=== PATIENT | female | born 1985 | race Caucasian/White ===

== ENCOUNTER 2017-02-16 10:54 | Outpatient (CLI) | payer MEDICAID, OTHER | END 2017-02-16 10:55 | disposition home or self-care (01) | DX: E78.5 Hyperlipidemia, unspecified (principal); I10 Essential (primary) hypertension ==

== ENCOUNTER 2018-02-21 08:00 | Outpatient (CLI) | payer OTHER ==
[2018-02-21 19:07] LABS: BASOPHILS # (AUTO) 0.1 10^3/uL (0.0-0.1); BASOPHILS % (AUTO) 0.7 %; EOSINOPHILS # (AUTO) 0.1 10^3/uL (0.0-0.7); EOSINOPHILS % (AUTO) 1.5 %; HGB - HEMOGLOBIN 13.3 g/dL (12.0-16.0); LYMPHOCYTES # (AUTO) 2.6 10^3/uL (1.5-3.5); LYMPHOCYTES % (AUTO) 30.7 %; MEAN CORPUSCULAR HEMOGLOBIN 28.7 pg (27.0-31.0); MEAN CORPUSCULAR HGB CONC 32.1 g/dL (32.0-36.0); MEAN CORPUSCULAR VOLUME 89.5 fL (81.0-99.0); MEAN PLATELET VOLUME 9.1 fL (7.9-10.8); MONOCYTES # (AUTO) 0.6 10^3/uL (0.0-1.0); MONOCYTES % (AUTO) 6.9 %; NEUTROPHILS # (AUTO) 5.1 10^3/uL (1.5-6.6); NEUTROPHILS % (AUTO) 60.2 %; PLT - PLATELET COUNT 351 10^3/uL (130-450); RED BLOOD COUNT 4.63 10^6/uL (4.20-5.40); WHITE BLOOD COUNT 8.5 x10^3/uL (4.8-10.8)
[2018-02-21 19:33] LABS: ALBUMIN 3.8 g/dL (3.2-5.5); ALKALINE PHOSPHATASE 58 IU/L (42-121); ALT ALANINE AMINOTRANSFERASE 45 IU/L (10-60); AST ASPARTATE AMINOTRANSFERASE 26 IU/L (10-42); BILIRUBIN,TOTAL 0.8 mg/dL (0.2-1.0); BUN - BLOOD UREA NITROGEN 13 mg/dL (6-20); CALCIUM 9.3 mg/dL (8.5-10.3); CARBON DIOXIDE - CO2 24 mmol/L (21-32); CHLORIDE 102 mmol/L (101-111); CHOLESTEROL 209 mg/dL; CREATININE 0.7 mg/dL (0.4-1.0); GFR - MDRD 96 (>89); GLUCOSE 80 mg/dL (70-100); HDL CHOLESTEROL 30 mg/dL; LDL CHOLESTEROL,CALCULATED 152 mg/dL; LDL/HDL RATIO 5.1 (<4.4); SODIUM 133 mmol/L (135-145); TOTAL PROTEIN 7.8 g/dL (6.7-8.2); VLDL CHOLESTEROL 27 mg/dL
== END 2018-02-21 08:01 | disposition home or self-care (01) ==
LOC: LAB.N 08:00
PROVIDERS: ATTEND Nurse Practitioner Gerontology
DX: E78.5 Hyperlipidemia, unspecified (principal); I10 Essential (primary) hypertension; Z13.9 Encounter for screening, unspecified
CPT/HCPCS: 36415; 80053; 80061; 83721; 84443; 85025

== ENCOUNTER 2018-10-18 14:34 | Outpatient (CLI) | payer OTHER ==
--- NOTE | 2018-10-18 15:34 | XRAY Report ---
Reason: COUGH Procedure Date: 10/18/2018 Accession Number: [id number] / [id number] Procedure: XRN - Chest 2 View X-Ray CPT Code: 04854 FULL RESULT: EXAM: CHEST RADIOGRAPHY EXAM DATE: 10/18/2018 02:55 PM. CLINICAL HISTORY: Cough. COMPARISON: None. TECHNIQUE: 2 views. FINDINGS: Lungs/Pleura: No focal opacities evident. No pleural effusion. No pneumothorax. Normal volumes. Mediastinum: Heart and mediastinal contours are unremarkable. Other: None. IMPRESSION: No evidence of pneumonia. RADIA
== END 2018-10-18 14:35 | disposition home or self-care (01) ==
LOC: DI.N 14:34
DX: R05 Cough (principal)
CPT/HCPCS: 71046

== ENCOUNTER 2020-09-23 10:02 | Outpatient (CLI) | payer MEDICAID, OTHER ==
[2020-09-23 12:58] LABS: BASOPHILS # (AUTO) 0.1 10^3/uL (0.0-0.1); BASOPHILS % (AUTO) 0.4 %; EOSINOPHILS # (AUTO) 0.2 10^3/uL (0.0-0.7); EOSINOPHILS % (AUTO) 1.5 %; HGB - HEMOGLOBIN 13.5 g/dL (12.0-16.0); LYMPHOCYTES # (AUTO) 2.5 10^3/uL (1.5-3.5); LYMPHOCYTES % (AUTO) 21.4 %; MEAN CORPUSCULAR HEMOGLOBIN 29.6 pg (27.0-31.0); MEAN CORPUSCULAR HGB CONC 31.8 g/dL (32.0-36.0); MEAN CORPUSCULAR VOLUME 93.2 fL (81.0-99.0); MEAN PLATELET VOLUME 11.1 fL (7.9-10.8); MONOCYTES # (AUTO) 0.8 10^3/uL (0.0-1.0); MONOCYTES % (AUTO) 7.1 %; NEUTROPHILS # (AUTO) 8.1 10^3/uL (1.5-6.6); NEUTROPHILS % (AUTO) 69.3 %; PLT - PLATELET COUNT 364 10^3/uL (130-450); RED BLOOD COUNT 4.56 10^6/uL (4.20-5.40); RED CELL DISTRIBUTION WIDTH 12.8 % (12.0-15.0); WHITE BLOOD COUNT 11.7 x10^3/uL (4.8-10.8)
[2020-09-23 13:17] LABS: ALBUMIN 3.6 g/dL (3.2-5.5); ALBUMIN/GLOBULIN RATIO 0.9 (1.0-2.2); ALKALINE PHOSPHATASE 57 IU/L (42-121); ALT ALANINE AMINOTRANSFERASE 24 IU/L (10-60); AST ASPARTATE AMINOTRANSFERASE 17 IU/L (10-42); BILIRUBIN,TOTAL 0.2 mg/dL (0.2-1.0); BUN - BLOOD UREA NITROGEN 15 mg/dL (6-20); CALCIUM 9.4 mg/dL (8.5-10.3); CARBON DIOXIDE - CO2 24 mmol/L (21-32); CHLORIDE 97 mmol/L (101-111); CHOL/HDL RATIO 6.5 (<4.4); CHOLESTEROL 215 mg/dL; CREATININE 0.8 mg/dL (0.4-1.0); GLUCOSE 116 mg/dL (70-100); HDL CHOLESTEROL 33 mg/dL; LDL CHOLESTEROL,CALCULATED 159 mg/dL; LDL/HDL RATIO 4.8 (<4.4); SODIUM 136 mmol/L (135-145); TOTAL PROTEIN 7.6 g/dL (6.7-8.2); VLDL CHOLESTEROL 23 mg/dL
[2020-09-23 13:31] LABS: HEMOGLOBIN A1c% 5.6 % (4.27-6.07)
== END 2020-09-23 23:59 | disposition home or self-care (01) ==
LOC: LAB.WCP 10:02
PROVIDERS: ATTEND Nurse Practitioner Family
DX: I10 Essential (primary) hypertension (principal); E78.00 Pure hypercholesterolemia, unspecified; Z83.3 Family history of diabetes mellitus; F41.9 Anxiety disorder, unspecified; F32.9 Major depressive disorder, single episode, unspecified
CPT/HCPCS: 36415; 80053; 80061; 83036; 83721; 84443; 85025

== ENCOUNTER 2020-10-19 09:17 | Outpatient (CLI) | payer MEDICAID | END 2020-10-19 09:18 | disposition home or self-care (01) | LOC: COV 09:17 | PROVIDERS: ATTEND Family Medicine | DX: R05 Cough (principal); R06.02 Shortness of breath; R53.83 Other fatigue; R07.0 Pain in throat; R09.81 Nasal congestion; J34.89 Other specified disorders of nose and nasal sinuses; Z20.822 Contact with and (suspected) exposure to COVID-19 ==

== ENCOUNTER 2021-12-13 12:32 | Outpatient (CLI) | payer MEDICAID | END 2021-12-13 12:33 | disposition home or self-care (01) | LOC: LAB.N 12:32 | PROVIDERS: ATTEND Physician Assistant Medical | DX: Z71.89 Other specified counseling (principal) | CPT/HCPCS: 36415; 86735; 86762; 86765; 86787 ==

== ENCOUNTER 2022-11-02 11:56 | Outpatient (CLI) | payer MEDICAID ==
[2022-11-02 18:29] LABS: BASOPHILS # (AUTO) 0.1 10^3/uL (0.0-0.1); BASOPHILS % (AUTO) 0.5 %; EOSINOPHILS # (AUTO) 0.3 10^3/uL (0.0-0.7); HCT - HEMATOCRIT 41.9 % (37.0-47.0); HGB - HEMOGLOBIN 13.3 g/dL (12.0-16.0); LYMPHOCYTES % (AUTO) 23.6 %; MEAN CORPUSCULAR HEMOGLOBIN 28.8 pg (27.0-31.0); MEAN CORPUSCULAR HGB CONC 31.7 g/dL (32.0-36.0); MEAN CORPUSCULAR VOLUME 90.7 fL (81.0-99.0); MEAN PLATELET VOLUME 11.1 fL (7.9-10.8); MONOCYTES # (AUTO) 0.8 10^3/uL (0.0-1.0); MONOCYTES % (AUTO) 6.2 %; NEUTROPHILS # (AUTO) 8.6 10^3/uL (1.5-6.6); NEUTROPHILS % (AUTO) 67.5 %; PLT - PLATELET COUNT 450 10^3/uL (130-450); RED BLOOD COUNT 4.62 10^6/uL (4.20-5.40); RED CELL DISTRIBUTION WIDTH 13.4 % (12.0-15.0); WHITE BLOOD COUNT 12.7 x10^3/uL (4.8-10.8)
[2022-11-02 19:13] LABS: ALBUMIN 3.6 g/dL (3.2-5.5); ALBUMIN/GLOBULIN RATIO 0.8 (1.0-2.2); ALKALINE PHOSPHATASE 57 IU/L (42-121); ALT ALANINE AMINOTRANSFERASE 14 IU/L (10-60); AST ASPARTATE AMINOTRANSFERASE 12 IU/L (10-42); BILIRUBIN,TOTAL 0.6 mg/dL (0.2-1.0); BUN - BLOOD UREA NITROGEN 16 mg/dL (6-20); CALCIUM 9.2 mg/dL (8.5-10.3); CARBON DIOXIDE - CO2 25 mmol/L (21-32); CHLORIDE 102 mmol/L (101-111); CHOL/HDL RATIO 5.6 (<4.4); CHOLESTEROL 230 mg/dL; CREATININE 0.9 mg/dL (0.4-1.0); GFR - MDRD 70 (>89); GLUCOSE 102 mg/dL (70-100); HDL CHOLESTEROL 41 mg/dL; LDL CHOLESTEROL,CALCULATED 160 mg/dL; LDL/HDL RATIO 3.9 (<4.4); POTASSIUM 4.5 mmol/L (3.5-5.0); SODIUM 136 mmol/L (135-145); TRIGLYCERIDES 143 mg/dL; VLDL CHOLESTEROL 29 mg/dL
[2022-11-02 19:19] LABS: THYROID STIMULATING HORMONE 3.02 uIU/mL (0.34-5.60)
[2022-11-02 21:09] LABS: ESTIMATED AVERAGE GLUCOSE 108 mg/dL (70-100); HEMOGLOBIN A1c% 5.4 % (4.27-6.07)
== END 2022-11-02 11:57 | disposition home or self-care (01) ==
LOC: LAB.N 11:56
PROVIDERS: ATTEND Physician Assistant Medical
DX: E78.00 Pure hypercholesterolemia, unspecified (principal); R73.9 Hyperglycemia, unspecified; Z13.9 Encounter for screening, unspecified
CPT/HCPCS: 36415; 80050; 80061; 83036; 83721

== ENCOUNTER 2023-06-26 07:53 | Outpatient (CLI) | payer MEDICAID ==
[2023-06-26 11:50] LABS: BASOPHILS # (AUTO) 0.1 10^3/uL (0.0-0.1); BASOPHILS % (AUTO) 0.5 %; EOSINOPHILS # (AUTO) 0.2 10^3/uL (0.0-0.7); HCT - HEMATOCRIT 39.4 % (37.0-47.0); HGB - HEMOGLOBIN 12.2 g/dL (12.0-16.0); LYMPHOCYTES # (AUTO) 2.2 10^3/uL (1.5-3.5); LYMPHOCYTES % (AUTO) 21.7 %; MEAN CORPUSCULAR VOLUME 90.6 fL (81.0-99.0); MEAN PLATELET VOLUME 11.2 fL (7.9-10.8); MONOCYTES # (AUTO) 0.6 10^3/uL (0.0-1.0); MONOCYTES % (AUTO) 6.3 %; NEUTROPHILS % (AUTO) 69.1 %; PLT - PLATELET COUNT 416 10^3/uL (130-450); RED BLOOD COUNT 4.35 10^6/uL (4.20-5.40); RED CELL DISTRIBUTION WIDTH 13.8 % (12.0-15.0); WHITE BLOOD COUNT 10.1 x10^3/uL (4.8-10.8)
[2023-06-26 12:14] LABS: CHOL/HDL RATIO 4.9 (<4.4); CHOLESTEROL 200 mg/dL; HDL CHOLESTEROL 41 mg/dL; LDL CHOLESTEROL,CALCULATED 133 mg/dL; LDL/HDL RATIO 3.2 (<4.4); TRIGLYCERIDES 130 mg/dL (48-352); VLDL CHOLESTEROL 26 mg/dL
== END 2023-06-26 07:54 | disposition home or self-care (01) ==
LOC: LAB.N 07:53
PROVIDERS: ATTEND Physician Assistant Medical
DX: E78.00 Pure hypercholesterolemia, unspecified (principal); D72.829 Elevated white blood cell count, unspecified
CPT/HCPCS: 36415; 80061; 83721; 85025

== ENCOUNTER 2023-10-30 15:03 | Outpatient (CLI) | payer MEDICAID ==
--- NOTE | 2023-10-30 15:30 | Sleep Patient Instructions ---
Sleep Center Visit Summary - Patient Visit Information Reason for Visit: Initial consult for evaluation of sleep disordered breathing and other sleep issues. - Patient Instructions Instructions Attached: Sleep Study, Sleep Study Home Monitor Additional Instructions: You will be completing a sleep study, either an in-lab polysomnography (PSG) or home sleep study (HST). You will follow-up in the sleep care office after the sleep study is completed to hear the results and talk about therapy, if needed. You will be called by our office staff to schedule this appointment, but you may contact us with any questions. - Clinic Information Contact: [facility] [address] [place] [id number] [email or web address] T: [phone]
--- NOTE | 2023-10-30 15:38 | SLEEP CARE CONSULTATION ---
Information from patient questionnaire entered by Dat Nath. I have reviewed and concur with the information entered by Dat Nath. This document represents the service I personally performed and the decisions made by me, Marjorie Galindo ARNP. History of Present Illness Service Date and Time: 10/30/2023 1503 Reason for Visit: New patient Chief Complaint: reports: Unrefreshed sleep, Snoring, Observed pauses in breathing, Fatigue, Frequent awakenings at night Date of Onset: 3+YRS Usual bedtime: 10 PM Time it takes to fall asleep: 30-60MINS Snores at night: Yes Observed to quit breathing while asleep: Yes Sleeps alone due to snoring: No Number of times waking at night: 3-4 Reasons for waking at night: reports: Choking (not often), Snoring, Bathroom. denies: Gasping for air Toss, Turn, or Twitch while sleeping: Yes Recalls having dreams: Yes Usually gets out of bed at: 7AM Feels refreshed in the morning: No Morning headache: Yes (1-2 times a month; WITHIN 30MINS) Sleepy or fatigued during the day: Yes Ever fallen asleep while driving: No Takes day naps: Yes (4 times a week; for 1-2 hours) Dreams during day naps: Yes Prior sleep studies: No Additional HPI information: I had the pleasure of seeing NOEMI ALICEA today regarding the possibility of her having a sleep disorder. Her current complaints are unrefreshed sleep, snoring, observed pauses in breathing, fatigue and frequent night awakenings. She says someone has told her that she gasps in her sleep. She says she snores loudly. She has woke herself up with her snoring and feeling like she was choking. She denies waking up gasping for air. She states she normally wakes up feeling tired and unrefreshed. She likes to take naps daily but only manages to get a nap about 4 days a week. She also wakes up with headaches occasionally, 1- 2 times a month, that resolves quickly in about 30 minutes after getting up. Her father has sleep apnea and is on a PAP machine. She also says that she had a cousin when he was 38 and they thought it was from complications of sleep apnea. 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 Patient is Single and lives in [place]. Have you smoked in the past 12 months: No Alcohol use: Yes Alcohol amount and frequency: 1 DRINK 1-2 X A MONTH Caffeine use: Yes Caffeine amount and frequency: 2-3 DRINKS DAILY Family History Family history of sleep disordered breathing: Yes Family Hx Sleep Apnea: Father: Snoring, Sleep apnea - Treated Allergies and Home Medications Known drug allergies: No Drug allergies reviewed: Yes Home medication list reviewed: Yes Allergy and home medication list: Allergies No Known Drug Allergies Allergy (Verified 10/26/23 12:04) Home Medications Medication Instructions Recorded Confirmed Last Taken Type Citalopram [CeleXA] See Rx Instructions .ROUTE .COMPLEX 01/10/14 10/30/23 Unknown History Lisinopril See Rx Instructions .ROUTE .COMPLEX 01/10/14 10/30/23 Unknown History ARIPiprazole [Abilify] See Rx Instructions .ROUTE .COMPLEX 10/30/23 10/30/23 Unknown History buPROPion HCL [Wellbutrin Xl] See Rx Instructions .ROUTE .COMPLEX 10/30/23 10/30/23 Unknown History Review of Systems Weight gain over past 5 years: 30 Cardiovascular: reports: high blood pressure, chest pain (sometimes after waking up, hurt like it worked too hard) Respiratory: reports: shortness of breath (just during activity) Gastrointestinal: reports: heartburn Urinary: reports: frequency Neurological: reports: headaches Psychiatric: reports: anxiety, depression Ear/Nose/Throat: reports: wisdom teeth removed. denies: tonsillectomy Physical Exam Vital signs obtained and entered by: DAT Young MA Blood Pressure: 122/80 (LEFT ARM) Cuff size: regular Heart Rate: 101 O2 Saturation: 95 Height: 5 ft 3 in Weight: 311 lb 6.4 oz Body Mass Index: 55.1 BMI Classification: Morbidly Obese Neck circumference: 21 Mouth and throat: narrow oropharynx Soft palate: normal Hard palate: normal Uvula: normal Uvula visualization: 25% Mallampati Class III Tongue: normal in size Tonsils: 3+/kissing Neck: normal w/o lymphadenopathy or thyromegaly Heart: regular rate and rhythm Lungs: clear bilaterally Impression and Plan 1. Suspected Obstructive Sleep Apnea-Hypopnea Syndrome, as suggested by a history of loud and irregular snoring, observed cessation of breath while asleep, gasping or choking in sleep, morning headache, frequent awakening during the night and unrefreshed sleep. Narrow oropharynx and obesity are common predisposing factors for obstructive sleep apnea-hypopnea syndrome. I recommend proceeding to polysomnography to confirm the diagnosis and to assess severity. If the patient has significant sleep disordered breathing, a manual CPAP titration study will also be performed to find the optimal treatment pressure. I informed the patient of what the sleep studies involve and after some discussion, obtained agreement to proceed. The pathophysiology of obstructive sleep apnea-hypopnea syndrome was discussed with the patient and health risks of cardiovascular and cerebrovascular disease if not treated. Risks of drowsy driving discussed in detail and patient advised to avoid long distance driving and to gum puller at the first sign of drowsiness. Patient agreed to plan. * Schedule polysomnography. * Avoid long distance driving or driving when feeling sleepy. * Avoid alcohol, sedative and muscle relaxant around bedtime. * Attempt to lose weight. * Review instructions provided by trained office staff on how to prepare for the sleep study. * Return for follow-up after sleep study completed. Counseling Topics: Weight loss health impact Plan: PSG/HST Visit Type: In Office Time Spent with Patient (minutes): 30 Provider Statement: I spent 100% of the Face to Face Visit with the patient with greater than 50% spent counseling the patient and coordination of care.
[2023-10-30 15:43] VITALS: BP 122/80; O2SAT 95
== END 2023-10-30 15:04 | disposition home or self-care (01) ==
LOC: SC 15:03
PROVIDERS: ATTEND Nurse Practitioner Family
DX: G47.10 Hypersomnia, unspecified (principal); R06.83 Snoring; R06.81 Apnea, not elsewhere classified; R53.83 Other fatigue; E66.01 Morbid (severe) obesity due to excess calories; Z68.43 Body mass index [BMI] 50.0-59.9, adult
CPT/HCPCS: 99203; 99212

== ENCOUNTER 2023-11-08 10:51 | Outpatient (CLI) | payer MEDICAID ==
--- NOTE | 2023-11-08 14:14 | XRAY Report ---
PROCEDURE: Ankle 3+V LT INDICATIONS: LEFT ANKLE PAIN TECHNIQUE: 3 views of the ankle were acquired. COMPARISON: None. FINDINGS: Bones: No fractures or dislocations. Corticated ossific density inferior to the lateral malleolus, likely an accessory ossicle or sequela of remote trauma. Ankle mortise is normally aligned on weightb earing view. No suspicious bony lesions. Soft tissues: No tibiotalar joint effusion. Achilles tendon appears normal. IMPRESSION: No acute bony abnormality. Reviewed by: Shaquille Barreto MD on 11/08/2023 2:13 PM PST Approved by: Shaquille Barreto MD on 11/08/2023 2:13 PM PST Station ID: [id number]
--- NOTE | 2023-11-08 14:16 | XRAY Report ---
PROCEDURE: Lumbar Spine 2-3V INDICATIONS: LUMBAR BACK PAIN TECHNIQUE: 3 views of the lumbar spine were acquired. COMPARISON: None. FINDINGS: Bones: 5 [id number] vertebrae are present. There is normal bony alignment. Mild multilevel de generative changes with tiny anterior osteophytosis and disc height loss as well as facet arthropathy , notably at L1-L2 and L5-S1. No vertebral body compression fractures. No suspicious bony lesions. Soft tissues: Overlying bowel gas pattern is normal. No suspicious soft tissue calcifications. IMPRESSION: 1.No acute osseous abnormality. 2.Mild multilevel degenerative changes, notably at L1-L2 and L5-S1. Reviewed by: Shaquille Barreto MD on 11/08/2023 2:14 PM PST Approved by: Shaquille Barreto MD on 11/08/2023 2:14 PM PST Station ID: [id number]
== END 2023-11-08 23:59 | disposition home or self-care (01) ==
LOC: DI.N 10:51
PROVIDERS: ATTEND Family Medicine
DX: M25.572 Pain in left ankle and joints of left foot (principal); M47.816 Spondylosis without myelopathy or radiculopathy, lumbar region; M47.817 Spondylosis without myelopathy or radiculopathy, lumbosacral region

== ENCOUNTER 2023-11-23 08:58 | Outpatient (CLI) | payer MEDICAID | END 2023-11-23 08:59 | disposition home or self-care (01) | LOC: SC 08:58 | PROVIDERS: ATTEND Nurse Practitioner Family | DX: G47.33 Obstructive sleep apnea (adult) (pediatric) (principal); R09.02 Hypoxemia; R00.0 Tachycardia, unspecified; I10 Essential (primary) hypertension; F32.A Depression, unspecified | CPT/HCPCS: 95806 ==

== ENCOUNTER 2023-11-30 09:05 | Outpatient (CLI) | payer MEDICAID ==
--- NOTE | 2023-11-30 09:32 | Sleep Patient Instructions ---
Sleep Center Visit Summary - Patient Visit Information Reason for Visit: Sleep study followup - Patient Instructions Additional Instructions: You will be completing a titration sleep study in our sleep lab where you will be sleeping with the CPAP machine on and we will be adjusting your pressures to find your optimal pressure settings. Once we have your results back, we will call you and schedule a follow up to go over the results. You will be called by our office staff to schedule your follow up, but you may contact us with any questions or issue as needed. - Clinic Information Contact: [facility] [address] [place] [address] [email or web address] T: [phone]
--- NOTE | 2023-11-30 09:36 | SLEEP CARE CONSULTATION ---
Information from patient questionnaire entered by Marly Nath. I have reviewed and concur with the information entered by Marly Nath. This document represents the service I personally performed and the decisions made by , Marjorie Galindo ARNP. History of Present Illness Service Date and Time: 11/30/2023904 Initial [place] Sleepiness Scale score: 5 (10/04/23) Current [place] Sleepiness Scale score: 19 () Additional HPI information: NOEMI ALICEA returns for follow up and results of the recently performed home sleep study. The sleep study showed extremely severe obstructive sleep apnea with an average AHI of 130.1 and kush oxygen saturation of 49%. She had some tachycardia with maximum heart rate recorded at 124. I explained the pathophysiology behind obstructive sleep apnea. We then spent quite a bit of time discussing different treatment options. For mild obstructive sleep apnea, surgery and oral appliance are alternatives to nasal CPAP therapy but in moderate or severe cases, nasal CPAP is the most effective and reliable treatment. I reviewed the impact of weight changes on sleep apnea and strongly recommended losing weight. After some discussion, the patient opted to go with the nasal CPAP therapy. A manual titration study will be ordered to find optimal pressure with office adjustments. Patient does not drink alcohol. Patient was cautioned about risks of drowsy driving until sleepiness symptoms resolve. Sleep Study - Results Type of Sleep Study: Home sleep study (COMPLETED 11/23/23) Prior sleep studies: No Polysomnography/Home Sleep Study results: Physician Impression: The quality of the study is good. The length of the study is adequate (> 240 minutes). Please also see the tabulated and graphic data. 1. Obstructive Sleep Apnea-Hypopnea (ICD-10 G47.33), extremely severe, with an AHI of 130.1/hr and kush SaO2 of 49%. During the study, the patient had 914 apneas (914 obstructive, 0 central, 0 mixed) and 25 hypopneas. The longest episode lasted 53.5 seconds. The respiratory events occurred more frequently during supine sleep (supine AHI was 134.0 and non-supine, 126.47). 2. Hypoxemia (ICD-10 R09.02), severe, with the lowest oxygen saturation of 49 % and 317.1 minutes with SaO2 under 90%. Baseline oxygen saturation was low (Average oxygen saturation was 81%). 3. Tachycardia, with maximum recorded heart rate of 124 beats per minute. Allergies and Home Medications Known drug allergies: No Drug allergies reviewed: Yes Home medication list reviewed: Yes (no changes) Allergy and home medication list: Allergies No Known Drug Allergies Allergy Review of Systems Review of systems same as previous: Yes (NO CHANGE) Physical Exam Vital signs obtained and entered by: MARLY Young MA Blood Pressure: 161/101 (LEFT) Cuff size: wrist Heart Rate: 97 O2 Saturation: 97 Height: 5 ft 3 in Weight: 314 lb 6.4 oz Body Mass Index: 55.7 BMI Classification: Morbidly Obese Impression and Plan 1. Obstructive Sleep Apnea-Hypopnea Syndrome, extremely severe, with lowest oxygen saturation of 49%. Obviously this is the cause of the patients symptoms of unrefreshed sleep, and excessive daytime sleepiness. Positive pressure therapy could benefit hypertension, anxiety and depression. As mentioned above, the patient will be started on nasal autoCPAP therapy. A manual titration study will be completed to find optimal treatment pressure with office adjustments. Compliance guidelines also reviewed. A copy of compliance guidelines will be given for reference at check out. 2. Hypoxemia, severe, with a kush oxygen saturation of 49% and 317.1 minutes spent under 90%. The baseline oxygen saturation was a low average oxygen saturation of 81%. 3. Tachycardia. Cardiac monitoring showed a maximum recorded heart rate of 124 beats per minute which is probably due to respiratory events noted during night of sleep study. Patient states she normally has a fast heart rate, resting heart rate in 100s. Further monitoring/evaluation as needed once her sleep apnea is adequately treated. 4. Obesity, unspecified. Currently patients BMI is 55.7. Obesity increases the risk of apnea, CPAP pressure requirements and overall health risks especially cardiovascular and diabetes. Thus patient is advised to lose weight. * Titration study * Attempt to lose weight. * Avoid alcohol consumption near bedtime. * Avoid supine sleep until using CPAP. * The patient is again cautioned about driving until sleepiness completely resolves. * Return after titration study to be set up on PAP therapy. Counseling Topics: Weight loss health impact Follow up with Sleep Care in: other (after titration study) Plan: Titration study Visit Type: In Office Time Spent with Patient (minutes): 20 Provider Statement: I spent 100% of the Face to Face Visit with the patient with greater than 50% spent counseling the patient and coordination of care.
[2023-11-30 09:41] VITALS: BP 161/101; O2SAT 97
== END 2023-11-30 09:06 | disposition home or self-care (01) ==
LOC: SC 09:05
PROVIDERS: ATTEND Nurse Practitioner Family
DX: G47.33 Obstructive sleep apnea (adult) (pediatric) (principal); R09.02 Hypoxemia; R00.0 Tachycardia, unspecified; E66.01 Morbid (severe) obesity due to excess calories; Z68.43 Body mass index [BMI] 50.0-59.9, adult
CPT/HCPCS: 99212; 99213

== ENCOUNTER 2023-12-16 19:35 | Outpatient (CLI) | payer MEDICAID | END 2023-12-16 19:36 | disposition home or self-care (01) | LOC: SC 19:35 | PROVIDERS: ATTEND Nurse Practitioner Family | DX: G47.33 Obstructive sleep apnea (adult) (pediatric) (principal) | CPT/HCPCS: 95811 ==

== ENCOUNTER 2023-12-20 08:05 | Outpatient (CLI) | payer OTHER, MEDICAID ==
--- NOTE | 2023-12-20 09:48 | XRAY Report ---
PROCEDURE: Ankle 3+V LT INDICATIONS: SPRAIN OF OTHER LIGAMENT OF LEFT ANKLE TECHNIQUE: 3 views of the ankle were acquired. COMPARISON: None. FINDINGS: Bones: Nonacute appearing bone fragment is again lateral malleolus, probably from a prior traumatic e vent. No acute displaced fracture. No dislocation. Calcaneal enthesopathy. Soft tissues: Soft tissue swelling is present. IMPRESSION: No definite acute displaced fracture or dislocation. Soft tissue swelling is present. Nonacute appear ing bone fragment again seen adjacent to the lateral malleolus. Consider MRI to further evaluate for further derangement, such as ligamentous injury. Reviewed by: Bebeto Aleman MD on 12/20/2023 9:46 AM PST Approved by: Bebeto Aleman MD on 12/20/2023 9:46 AM PST Station ID: [id number]
== END 2023-12-20 23:59 | disposition home or self-care (01) ==
LOC: DI.N 08:05
PROVIDERS: ATTEND Family Medicine
DX: S93.492A Sprain of other ligament of left ankle, initial encounter (principal)

== ENCOUNTER 2023-12-25 09:30 | Outpatient (CLI) | payer MEDICAID ==
--- NOTE | 2023-12-25 10:11 | Sleep Patient Instructions ---
Sleep Center Visit Summary - Patient Visit Information Reason for Visit: Sleep study follow-up - Patient Instructions Instructions Attached: CPAP Additional Instructions: You are being started on CPAP therapy with pressure setting at 14-18 cmH2O. You will need to call the sleep care office to set up your follow up once you have your CPAP machine to check compliance and response to therapy at that time. You may call the office with any concerns about pressure feeling too low or too much for adjustment, if needed. You should contact DME supplier for any questions or concerns about mask or equipment. Please call office to schedule a follow up appointment in the sleep care office one month after obtaining new device. - Clinic Information Contact: [facility] [address] [place] [address] [email or web address] T: [phone]
--- NOTE | 2023-12-25 10:13 | SLEEP CARE CONSULTATION ---
Information from patient questionnaire entered by Marly Nath. I have reviewed and concur with the information entered by Marly Nath. This document represents the service I personally performed and the decisions made by , Marjorie Galindo ARNP. History of Present Illness Service Date and Time: 12/25/2023929 Initial [place] Sleepiness Scale score: 5 (10/04/23) Current [place] Sleepiness Scale score: 13 Additional HPI information: NOEMI ALICEA returns for follow up of the sleep study with a manual CPAP titration study performed on 12/16/23. Previous study done on 11/23/23 showed extremely severe obstructive sleep apnea with average AHI of 130.1. The patient was informed of the following polysomnography findings: CPAP was initiated at 7 cmH2O and titrated up to CPAP at 18 cmH2O. CPAP at 17 cmH2O appeared to be optimal (AHI of 3.2 per hour on the pressure and kush oxygen saturation of 86%). There was supine REM sleep on the pressure. Oxygen saturation was moderately low due to frequent residual respiratory events on lower CPAP settings. The patient appeared to have tolerated positive airway pressure therapy very well. I explained how CPAP machine works and what to expect when using the machine. Using CPAP every night in order to get used to it was emphasized. Patient advised to put CPAP mask on before getting into bed so as not to fall asleep without CPAP. To assist acclimation to CPAP use, it could also be used for a short time during day while reading or watching TV. The patient was instructed to call the CPAP supplier to discuss any mechanical problem that may occur. If the mask given is uncomfortable or is difficult to keep on through the night even with adjustment, contact the CPAP supplier as many will replace with another mask style if notified before 30 days. If snoring or perceives is not getting enough air or too much air from the machine, notify this office. Patient does not drink alcohol. Patient was cautioned about risks of drowsy driving until sleepiness symptoms resolve. Sleep Study - Results Type of Sleep Study: Home sleep study (COMPLETED 11/23/23 TITRATION STUDY COMPLETED 11/23/23) Prior sleep studies: No Polysomnography/Home Sleep Study results: IMPRESSION: The quality of the study is good. CPAP was initiated at 7 cmH2O and titrated up to CPAP at 18 cmH2O. CPAP at 17 cmH2O appeared to be optimal (AHI of 3.2 per hour on the pressure and kush oxygen saturation of 86%). There was supine REM sleep on the pressure. Oxygen saturation was moderately low due to frequent residual respiratory events on lower CPAP settings. The patient appeared to have tolerated positive airway pressure therapy very well. The patients sleep efficiency was normal. The sleep architecture was abnormal for sleep fragmentation and reduced amount of time spent in slow wave sleep (N3). There was no periodic leg movement of sleep. Cardiac rhythm was normal sinus rhythm without significant arrhythmia. No abnormal behavior (parasomnia) observed during the night. Allergies and Home Medications Known drug allergies: No Drug allergies reviewed: Yes Home medication list reviewed: Yes (no changes) Allergy and home medication list: Allergies No Known Drug Allergies Allergy (Verified 12/21/23 11:08) Review of Systems Review of systems same as previous: Yes (no changes) Physical Exam Vital signs obtained and entered by: MARJORIE IBARRA Blood Pressure: 130/75 Cuff size: regular (right forearm) Heart Rate: 90 O2 Saturation: 94 Height: 5 ft 3 in Weight: 322 lb 12.8 oz Body Mass Index: 57.2 BMI Classification: Morbidly Obese Impression and Plan 1. Obstructive Sleep Apnea-Hypopnea Syndrome, extremely severe. She returns to the office today after a titration study to find her optimal pressure settings. Positive pressure therapy could benefit hypertension, anxiety and depression. Her optimal pressure setting appeared to be 17 cmH2O, 14-18 cmH2O was also noted to be appropriate. She appeared to tolerate positive airway pressure very well on night of the titration study. She will be started on a CPAP with pressure setting at 14-18 cm H2O. Compliance guidelines also reviewed. A copy of compliance guidelines will be given for reference at check out. Because the apnea is more severe supine, I instructed to avoid sleeping supine using pillow positioning until able to start CPAP use. 2. Morbid Obesity, unspecified. Currently patients BMI is 57.2. Obesity increases the risk of apnea, CPAP pressure requirements and overall health risks especially cardiovascular and diabetes. Thus patient is advised to lose weight. * Nasal auto CPAP therapy, pressure at 14-18 cm H2O. * Attempt to lose weight. * Avoid alcohol consumption near bedtime. * Avoid supine sleep until using CPAP. * The patient is again cautioned about driving until sleepiness completely resolves. * Return one month after CPAP obtained. I will assess response to therapy and compliance at that time. Counseling Topics: Weight loss health impact Prescriptions: Auto CPAP Follow up with Sleep Care in: other (one month after obtaining new machine) Visit Type: In Office Time Spent with Patient (minutes): 22 Provider Statement: I spent 100% of the Face to Face Visit with the patient with greater than 50% spent counseling the patient and coordination of care.
[2023-12-25 10:23] VITALS: BP 130/75; O2SAT 94
== END 2023-12-25 09:31 | disposition home or self-care (01) ==
LOC: SC 09:30
PROVIDERS: ATTEND Nurse Practitioner Family
DX: G47.33 Obstructive sleep apnea (adult) (pediatric) (principal); E66.01 Morbid (severe) obesity due to excess calories; Z68.43 Body mass index [BMI] 50.0-59.9, adult
CPT/HCPCS: 99212; 99213

== ENCOUNTER 2024-02-07 08:22 | Outpatient (CLI) | payer MEDICAID ==
--- NOTE | 2024-02-07 08:47 | Sleep Patient Instructions ---
Sleep Center Visit Summary - Patient Visit Information Reason for Visit: 1st compliance followup - Patient Instructions Additional Instructions: You were here for follow up of CPAP therapy. You will be continued on CPAP therapy with pressure at 14-18 cmH2O. You should follow up with sleep care in 3 months. You may contact us sooner for any questions or concerns. - Clinic Information Contact: [facility] [address] [place] [address] [email or web address] T: [phone]
--- NOTE | 2024-02-07 08:52 | SLEEP CARE CONSULTATION ---
Information from patient questionnaire entered by Dat Nath. I have reviewed and concur with the information entered by Dat Nath. This document represents the service I personally performed and the decisions made by , Marjorie Galindo ARNP. History of Present Illness Service Date and Time: 02/07/2024821 Previous diagnosis: Extremely Severe, Obstructive Sleep Apnea-Hypopnea Syndrome AHI: 130.1 (11/23/23) Reason for follow up: first compliance Equipment type: CPAP (RESMED Airsense 10, S/U 12/28/23) Equipment obtained from: Other ([facility], getting supplies) Mask style: Nasal Mask brand: Respironics (Wisp, large cushion) Backup mask available: Yes Last cushion change: 1 month Prior sleep studies: No Type of Sleep Study: Home sleep study (COMPLETED 11/23/23 TITRATION STUDY COMPLETED 11/23/23) HPI additional information: NOEMI ALICEA was diagnosed to have extremely severe, AHI 130.1, obstructive sleep apnea-hypopnea syndrome and returned today for CPAP therapy first compliance follow-up. Sleep Study - Results Type of Sleep Study: Home sleep study (COMPLETED 11/23/23 TITRATION STUDY COMPLETED 11/23/23) Prior sleep studies: No CPAP Compliance Data - Data Reviewed with Patient Average duration of nightly device use: 5 HRS 0 MINS Compliance rate %: 77 (12/28/23-01/26/24; 27/30 days used) Current pressure setting (cmH2O): 14-18 (median 14, avg 15.5, max 16.3) Average residual AHI: 0.5 Central apnea: 0 Obstructive apnea: 0.2 Hypopnea: 0.2 Average large leak: 8.2 L/min Subjective Missed days of use due to: reports: other (discomfort) Patient concerns: denies: aerophagia, mask discomfort, air blowing in eyes, mask leak noise, condensation in mask/hose, nasal congestion, dry mouth, nose, throat, epistaxis Observed to snore while using device: No Current pressure setting perceived as: comfortable On therapy, patient: reports: sleeping better, awakening more refreshed, being more awake and alert during the day, more rested overall. denies: drowsiness while driving Initial [place] Sleepiness Scale score: 5 (10/04/23) Current [place] Sleepiness Scale score: 8 (02/07/24) Allergies and Home Medications Known drug allergies: No Drug allergies reviewed: Yes Home medication list reviewed: Yes (no changes) Allergy and home medication list: Allergies No Known Drug Allergies Allergy (Verified 02/05/24 09:15) Review of Systems Review of systems same as previous: Yes (NO CHANGE) Physical Exam Vital signs obtained and entered by: DAT Young MA Blood Pressure: 179/115 (RIGHT; took BP meds 30 mins ago) Cuff size: wrist Heart Rate: 101 O2 Saturation: 96 Height: 5 ft 3 in Weight: 330 lb 3.2 oz Weight change since last visit: 8 lb gain Body Mass Index: 58.4 BMI Classification: Morbidly Obese Impression and Plan 1. Obstructive Sleep Apnea-Hypopnea Syndrome, extremely severe, with good treatment compliance and good apnea control. On CPAP therapy, the patient has better sleep quality and is more rested overall. She states it was a little difficult at first but she is now getting used to the mask and pressures. She says it was better once we increase the ramp starting pressure and now she barely recognizes that the air pressure is there. She has significant improveme nt of her sleep apnea and is compliant with use. Patient's apnea severity and rationale for treatment to reduce apnea, improve sleep quality and reduce cardiovascular and cerebrovascular events was reviewed. I also reviewed the benefit of consistent device use of CPAP for hypertension, depression/anxiety. 2. Elevated blood pressure reading in patient with hypertension. Her initial pressure was elevated at 179/115. She had just taken her blood pressure medication about 30 minutes prior to appointment. We rechecked her pressure before she left office and it was at 126/86. She denied chest pain, shortness of breath, headaches or dizziness. 3. Obesity, unspecified. Currently patients BMI is 58.4. Obesity increases the risk of apnea, CPAP pressure requirements and overall health risks especially cardiovascular and diabetes. Thus patient is advised to lose weight. * Continue auto CPAP pressure at 14-18 cmH2O * Notify me if snoring with mask or feeling that the pressure is too much or too little * Attempt to lose weight * Call this office if any problems using CPAP * Return for follow up in 3 months, or sooner if concerns arise Counseling Topics: Spare mask, Weight loss health impact Follow up with Sleep Care in: 3 months Visit Type: In Office Time Spent with Patient (minutes): 17 Provider Statement: I spent 100% of the Face to Face Visit with the patient with greater than 50% spent counseling the patient and coordination of care.
[2024-02-07 09:01] VITALS: BP 179/115; O2SAT 96
== END 2024-02-07 08:23 | disposition home or self-care (01) ==
LOC: SC 08:22
PROVIDERS: ATTEND Nurse Practitioner Family
DX: G47.33 Obstructive sleep apnea (adult) (pediatric) (principal); I10 Essential (primary) hypertension; E66.01 Morbid (severe) obesity due to excess calories; Z68.43 Body mass index [BMI] 50.0-59.9, adult
CPT/HCPCS: 99212

== ENCOUNTER 2024-05-21 13:00 | Outpatient (CLI) | payer MEDICAID ==
--- NOTE | 2024-05-21 13:43 | Sleep Patient Instructions ---
Sleep Center Visit Summary - Patient Visit Information Reason for Visit: 4-month follow-up - Patient Instructions Additional Instructions: You were here for follow up of CPAP therapy. You will be continued on CPAP therapy with pressure at 14-18 cmH2O. You should follow up with sleep care in 6 months. You may contact us sooner for any questions or concerns. - Clinic Information Contact: [facility] [address] [place] [address] [email or web address] T: [phone]
--- NOTE | 2024-05-21 13:45 | SLEEP CARE CONSULTATION ---
Information from patient questionnaire entered by Dat Nath. I have reviewed and concur with the information entered by Dat Nath. This document represents the service I personally performed and the decisions made by , Marjorie Galindo ARNP. History of Present Illness Service Date and Time: 05/21/2024 1300 Previous diagnosis: Extremely Severe, Obstructive Sleep Apnea-Hypopnea Syndrome AHI: 130.1 (11/23/2023) Reason for follow up: other (40 MONTH F/U) Equipment type: CPAP (RESMED Airsense 10, S/U 12/28/23) Equipment obtained from: Other ([facility]; getting supplies) Mask style: Nasal Mask brand: Respironics (Wisp) Backup mask available: Yes Last cushion change: last month Prior sleep studies: No Type of Sleep Study: Home sleep study (COMPLETED 11/23/23 TITRATION STUDY COMPLETED 11/23/23) HPI additional information: NOEMI ALICEA was diagnosed to have extremely severe, AHI 130.1, obstructive sleep apnea-hypopnea syndrome and returned today for CPAP therapy four month follow-up. Sleep Study - Results Type of Sleep Study: Home sleep study (COMPLETED 11/23/23 TITRATION STUDY COMPLETED 11/23/23) Prior sleep studies: No CPAP Compliance Data - Data Reviewed with Patient Average duration of nightly device use: 7 HRS 7 MINS Compliance rate %: 98 (01/20/24-05/18/24; 120/120 days used) Current pressure setting (cmH2O): 14-18 Average residual AHI: 1.8 Central apnea: 0 Obstructive apnea: 0.2 Hypopnea: 0.5 Average large leak: 10.4 L/min Subjective Patient concerns: reports: air blowing in eyes (needing to change cushion). denies: aerophagia, mask discomfort, mask leak noise, condensation in mask/hose, nasal congestion, dry mouth, nose, throat, epistaxis Observed to snore while using device: No Current pressure setting perceived as: comfortable On therapy, patient: reports: sleeping better, awakening more refreshed, being more awake and alert during the day, more rested overall. denies: drowsiness while driving Initial [place] Sleepiness Scale score: 5 (10/04/23) Current [place] Sleepiness Scale score: 1 (05/21/24) Allergies and Home Medications Known drug allergies: No Drug allergies reviewed: Yes Home medication list reviewed: Yes (no changes) Allergy and home medication list: Allergies No Known Drug Allergies Allergy (Verified 05/21/24 13:10) Review of Systems Review of systems same as previous: Yes (no changes) Physical Exam Vital signs obtained and entered by: DAT Young MA Blood Pressure: 161/90 (RIGHT) Cuff size: wrist Heart Rate: 89 O2 Saturation: 96 Height: 5 ft 3 in Weight: 326 lb 9.6 oz Weight change since last visit: 4 lb loss Body Mass Index: 57.8 BMI Classification: Morbidly Obese Impression and Plan 1. Obstructive Sleep Apnea-Hypopnea Syndrome, extremely severe, with good treatment compliance and good apnea control. On CPAP therapy, the patient has better sleep quality and is more rested overall. She has significant improvement of her sleep apnea and is satisfied with current CPAP therapy. Patient denies problems with oral dryness, nasal congestion, epistaxis, skin irritation or aerophagia. Patient's apnea severity and rationale for treatment to reduce apnea, improve sleep quality and reduce cardiovascular and cerebrovascular events was reviewed. I also reviewed the benefit of consistent device use of CPAP for hypertension, depression/anxiety. 2. Obesity, unspecified. Currently patients BMI is 57.8. She has lost weight. Obesity increases the risk of apnea, CPAP pressure requirements and overall health risks especially cardiovascular and diabetes. Thus patient is advised to lose weight. * Continue auto CPAP pressure at 14-18 cmH2O * Notify me if snoring with mask or feeling that the pressure is too much or too little * Attempt to lose weight * Call this office if any problems using CPAP * Return for follow up in 6 months, or sooner if concerns arise Counseling Topics: Spare mask, Weight loss health impact Follow up with Sleep Care in: 6 months Time Spent with Patient (minutes): 12
[2024-05-21 13:55] VITALS: BP 161/90; O2SAT 96
== END 2024-05-21 13:01 | disposition home or self-care (01) ==
LOC: SC 13:00
PROVIDERS: ATTEND Nurse Practitioner Family
DX: G47.33 Obstructive sleep apnea (adult) (pediatric) (principal); E66.01 Morbid (severe) obesity due to excess calories; Z68.43 Body mass index [BMI] 50.0-59.9, adult
CPT/HCPCS: 99212